=== PATIENT | female | born 1960 | race Caucasian/White ===

== ENCOUNTER → 2016-11-11 | Outpatient (CLI) | payer OTHER ==
[~2016-11-11] MED LIST: ACET325T96 PO; ADVIN25/60 INH; ALBUAER INH; CHOL100010 PO; FERR325T5 PO; NRN/600 PO; TRAM-10 PO; VENL75TA4 PO
--- NOTE | 2016-11-11 14:59 | DIAGNOSTIC IMAGING REPORT ---
CT LUNG SCREENING, LOW DOSE WITH COMPUTER-AIDED DETECTION (CAD) CLINICAL HISTORY: Smoking history. COMPARISON STUDY: Chest CT December 02, 2015. CT DOSE: 72.52 mGycm TECHNIQUE: Low-dose helical CT was acquired without intravenous contrast from lung apices to bases and reconstructed at 2.5 mm every 2 mm. CAD was utilized for this study. A dose lowering technique was utilized adhering to the principles of ALARA. FINDINGS: No enlarged axillary, mediastinal or hilar lymph nodes are present. Size of the heart is normal. There is moderate coronary artery calcification. Thyroid gland is enlarged. Central airways are patent. There is no pneumothorax or pleural effusion. There is no consolidation to suggest pneumonia. There are no suspicious pulmonary nodules. No suspicious osseous lesions are present. The patient is status post left mastectomy. The gallbladder is surgically absent. Upper abdomen is unremarkable on this unenhanced exam. IMPRESSION: 1. No suspicious pulmonary nodules. 2. No acute intrathoracic findings. Lung RADS 1. Negative study. Continue with annual screening with low dose CT in 12 months. CAD FINDINGS: Overall Lung RADS Category: 1 Lung RADS Management Recommendation: Follow-up low dose CT in 12 months. Lung RADS Follow Up Date: November 11, 2017 Electronically signed by: Jeffrey Lemus M.D. 11/11/2016 2:58 PM Dictated Date/Time: 11/11/2016 2:41 PM
== END | disposition home or self-care (01) ==
LOC: C.CTS 13:46
PROVIDERS: ATTEND Nurse Practitioner
DX: Z12.2 Encounter for screening for malignant neoplasm of respiratory organs (principal); F17.210 Nicotine dependence, cigarettes, uncomplicated

== ENCOUNTER 2017-01-29 04:38 | Emergency (ER) | payer OTHER ==
[~2017-01-29] VITALS: Ht 165.1 cm; Wt 73.6 kg
[2017-01-29 04:46] VITALS: TEMP 36.4; Ht 165.1 cm; Wt 73.6 kg
[2017-01-29] MEDS ORDERED: ONDANSETRON INJ 2 MG/ML 2 ML VIAL IV STA (04:59)
[2017-01-29] MEDS ORDERED: MoRPHine SULFATE 4 MG/ML 1 ML CARP\\VIAL IV STA (04:59)
[2017-01-29] MEDS ORDERED: OPTIRAY 320 IV PRN (05:15)
[2017-01-29 05:23] LABS: BASO ABS # 0.05 K/uL (0-0.2); COMPLETE YES; EOS % 3.7 %; HEMATOCRIT 37.9 % (37-47); IG% 0.4 %; LYMPH ABS # 1.88 K/uL (1.2-3.4); MEAN CELL VOLUME 92.9 fL (80-100); MEAN CORPUSCULAR HEMOGLOBIN 31.4 pg (25-34); MEAN CORPUSCULAR HGB CONC 33.8 g/dl (32-36); MEAN PLATELET VOLUME 8.5 fL (7.4-10.4); MONO % 9.1 %; NEUT % 48.8 %; PLATELET COUNT 430 K/uL (130-400); RED BLOOD COUNT 4.08 M/uL (4.2-5.4); WHITE BLOOD COUNT 5.08 K/uL (4.8-10.8)
[2017-01-29 05:39] LABS: ALT/SGPT 20 U/L (12-78); AST/SGOT 13 U/L (15-37); BLOOD UREA NITROGEN 18 mg/dl (7-18); CALCIUM 9.8 mg/dl (8.5-10.1); CARBON DIOXIDE 28 mmol/L (21-32); CHLORIDE 105 mmol/L (98-107); GLUCOSE 92 mg/dl (70-99); POTASSIUM 3.7 mmol/L (3.5-5.1); SODIUM 139 mmol/L (136-145)
[2017-01-29 05:42] LABS: ALKALINE PHOSPHATASE 128 U/L (45-117)
[2017-01-29] MEDS ORDERED: HYDROmorphone INJ 2 MG/ML SYR/VIAL IV STA (05:51)
[2017-01-29] MEDS ORDERED: PANTOprazole SOD 40 MG TAB PO STA (06:08)
[2017-01-29] MEDS ORDERED: LIDOCAINE HCL 2% VISC SOLN 20 ML UDC PO STA (06:10)
[2017-01-29] MEDS ORDERED: ALUMINUM/MAGNESIUM SUSP 30 ML UDC PO STA (06:10)
--- NOTE | 2017-01-29 06:11 | EMERGENCY ROOM VISIT NOTE ---
ED Visit Note First contact with patient: 04:41 I saw this patient in conjunction with Nat Canas PA-C. I agree with her decision making and treatment plan.
--- NOTE | 2017-01-29 06:24 | EMERGENCY ROOM VISIT NOTE ---
History First contact with patient: 04:41 Chief Complaint: ABDOMINAL PAIN Stated Complaint: PAIN IN STOMACH History of Present Illness The patient is a 56 year old female who presents to the Emergency Room with complaints of nausea and epigastric pain for the past couple days that is steadily getting worse is a history of pancreatitis. Pain is 9 out of 10. Nothing makes it better or worse. Patient does not drink alcohol. Patient denies chest pain, dyspnea, fever, chills, back pain, urinary symptoms, vomiting , diarrhea. Status post cholecystectomy. History of breast cancer in the past and currently cancer free. Review of Systems See HPI for pertinent positives & negatives. A total of 10 systems reviewed and were otherwise negative. Past Medical/Surgical History Medical Problems: (1) Ca In Situ Breast (2) Ext Hemorrhoid W/O Compl (3) Int Hemorrhoid W/O Compl (4) Iron Defic Anemia Nos (5) Migraine Unspecified W/O Intract Mgrn W/O Status Migrainosus (6) Osteoarthro Nos-Oth Site (7) Ovarian Cyst Nec/Nos (8) Peptic Ulcer Nos (9) Tobacco Use Disorder Surgical Problems: (1) Cholelith W Cholecys Nec Pancreatitis, asthma Social History Smoking Status: Current Every Day Smoker Smokeless Tobacco Use: No Alcohol Use: none Drug Use: none Marital Status: Housing Status: lives with family Occupation Status: employed Current/Historical Medications Scheduled Albuterol (Proventil Hfa), 2 PUFF INH PRN Cholecalciferol (Vitamin D), 2,000 INTER.UNIT PO DAILY Ferrous Sulfate (Ferrous Sulfate), 325 MG PO DAILY Fluticasone Prop/Salmeterol (Advair Diskus 250/50 60 Dose), 1 PUFF INH BID Gabapentin (Neurontin), 600 MG PO TID Venlafaxine Hcl (Effexor), 75 MG PO DAILY Scheduled PRN Acetaminophen Tab (Tylenol), 650 MG PO Q4H PRN for Pain Tramadol (Ultram), 100 MG PO Q4-6H PRN for Pain Allergies Coded Allergies: Meperidine (Verified Allergy, Severe, ANAPHYLACTIC SHOCK, 04/17/09) Physical Exam Vital Signs Date Time Temp Pulse Resp B/P (MAP) Pulse Ox O2 Delivery O2 Flow Rate FiO2 01/29/17 05:46 66 23 188/117 100 Room Air 01/29/17 05:13 71 01/29/17 05:10 Room Air 01/29/17 05:09 Room Air 01/29/17 04:46 36.4 69 20 151/99 99 Room Air Physical Exam VITALS: Vitals are noted on the nurse's note and reviewed by myself. Vital signs hypertensive GENERAL: Pleasant female, in no acute distress, nondiaphoretic, well-developed well-nourished. SKIN: The skin was without rashes, erythema, edema, or bruising. There is no tenting of the skin. Capillary reflex less than 2 seconds. HEAD: Normocephalic atraumatic. EARS: External auditory canals clear, tympanic membranes pearly mckenzie without erythema or effusion bilaterally. EYES: Pupils equal round and reactive to light and accommodation. Conjunctivae without injection, sclerae without icterus. Extraocular movements intact. NOSE: Patent, turbinates without inflammation or discharge. MOUTH: Mucous membranes moist. Pharynx without erythema or exudate. Uvula midline. Airway patent. Tongue does not deviate. NECK: Supple without nuchal rigidity. No lymphadenopathy. No thyromegaly. Cervical spine is nontender. No JVD. HEART: Regular rate and rhythm LUNGS: Clear to auscultation bilaterally without wheezes, rales or rhonchi. No dullness to percussion. No retractions or accessory muscle use. ABDOMEN: Positive bowel sounds x 4. Normal tympanic percussion. Soft, tender to palpation epigastric region, no CVA tenderness, without masses or organomegaly. Matthews sign negative. No guarding or rebound tenderness. MUSCULOSKELETAL: No muscle atrophy, erythema, or edema noted. NEURO: Patient was alert and oriented to person place and time. Normal sensation to light and sharp touch. No focal neurological deficits. Medical Decision & Procedures Laboratory Results 01/29/17 05:15 Red Blood Count 4.08, Mean Corpuscular Volume 92.9, Mean Corpuscular Hemoglobin 31.4, Mean Corpuscular Hemoglobin Concent 33.8, Mean Platelet Volume 8.5, Neutrophils (%) (Auto) 48.8, Lymphocytes (%) (Auto) 37.0, Monocytes (%) (Auto) 9.1, Eosinophils (%) (Auto) 3.7, Basophils (%) (Auto) 1.0, Neutrophils # (Auto) 2.48, Lymphocytes # (Auto) 1.88, Monocytes # (Auto) 0.46, Eosinophils # (Auto) 0.19, Basophils # (Auto) 0.05 01/29/17 05:15 Test 01/29/17 05:15 01/29/17 05:17 White Blood Count 5.08 K/uL (4.8-10.8) Red Blood Count 4.08 M/uL (4.2-5.4) Hemoglobin 12.8 g/dL (12.0-16.0) Hematocrit 37.9 % (37-47) Mean Corpuscular Volume 92.9 fL (80-100) Mean Corpuscular Hemoglobin 31.4 pg (25-34) Mean Corpuscular Hemoglobin Concent 33.8 g/dl (32-36) Platelet Count 430 K/uL (130-400) Mean Platelet Volume 8.5 fL (7.4-10.4) Neutrophils (%) (Auto) 48.8 % Lymphocytes (%) (Auto) 37.0 % Monocytes (%) (Auto) 9.1 % Eosinophils (%) (Auto) 3.7 % Basophils (%) (Auto) 1.0 % Neutrophils # (Auto) 2.48 K/uL (1.4-6.5) Lymphocytes # (Auto) 1.88 K/uL (1.2-3.4) Monocytes # (Auto) 0.46 K/uL (0.11-0.59) Eosinophils # (Auto) 0.19 K/uL (0-0.5) Basophils # (Auto) 0.05 K/uL (0-0.2) RDW Standard Deviation 45.6 fL (36.4-46.3) RDW Coefficient of Variation 13.5 % (11.5-14.5) Immature Granulocyte % (Auto) 0.4 % Immature Granulocyte # (Auto) 0.02 K/uL (0.00-0.02) Anion Gap 6.0 mmol/L (3-11) Est Creatinine Clear Calc Drug Dose 126.2 ml/min Estimated GFR () 125.4 Estimated GFR (Non- 108.2 BUN/Creatinine Ratio 36.0 (10-20) Calcium Level 9.8 mg/dl (8.5-10.1) Total Bilirubin 0.2 mg/dl (0.2-1) Direct Bilirubin < 0.1 mg/dl (0-0.2) Aspartate Amino Transf (AST/SGOT) 13 U/L (15-37) Alanine Aminotransferase (ALT/SGPT) 20 U/L (12-78) Alkaline Phosphatase 128 U/L (45-117) Total Protein 7.2 gm/dl (6.4-8.2) Albumin 3.9 gm/dl (3.4-5.0) Lipase 129 U/L (73-393) Bedside Troponin I < 0.030 ng/ml (0-0.045) Medications Administered Medications (Trade) Dose Ordered Sig/Denny Route Start Time Stop Time Status Last Admin Dose Admin Morphine Sulfate (MoRPHine SULFATE INJ) 4 mg NOW STAT IV 01/29/17 04:59 01/29/17 05:00 DC 01/29/17 05:12 4 MG Ondansetron HCl (Zofran Inj) 4 mg NOW STAT IV 01/29/17 04:59 01/29/17 05:00 DC 01/29/17 05:12 4 MG Hydromorphone HCl (Dilaudid Inj) 1 mg ONE STAT IV 01/29/17 05:51 01/29/17 05:53 DC 01/29/17 05:58 1 MG ED Course Prior records/ancillary studies reviewed. Triage Nursing notes reviewed. Additional history obtained from family. The patient's history was concerning for abdominal pain. Differential diagnosis: Etiologies such as appendicitis, diverticulitis, PUD, biliary pathology, UTI, pancreatitis, obstruction, mesenteric ischemia, aortic pathology, infections, inflammatory bowel disease, renal colic, as well as others were entertained. Physical examination findings: As above. ER treatment provided: Morphine, Zofran On reassessment the patient felt better. Diagnostics interpreted by me: ECG: Normal sinus, normal intervals, no acute ST-T wave changes. Impression normal sinus rhythm interpreted by myself The labs revealed normal lipase. Negative troponin Stable H&H Imaging studies: CT ABDOMEN & PELVIS With Contrast: Lower thorax demonstrates left-sided mastectomy. Moderate intra-and extra hepatic bile duct dilatation without obstructing lesion identified. Findings are likely related to prior cholecystectomy. Liver spleen pancreas and adrenal glands are unremarkable. Probable cyst within the right kidney. Otherwise, the kidneys, ureters and urinary bladder are unremarkable. Uterus is surgically absent. No adnexal masses. Appendix is not visualized. The bowel is unremarkable. Post surgical changes noted in the lower lumbosacral spine. Radiologist: Gomez Spring MD Chest x-ray with no acute consolidation, pneumothorax or free air per my interpretation Exam and history seem consistent with epigastric pain that could be related to reflux. Patient was started on a PPI. Patient did not have acute abdomen on exam. She is advised to see her GI doctor, Dr. Sharma, for further evaluation and treatment and her family care doctor within the next few days and to monitor her blood pressure. She is advised to take medications as directed.. Patient was neurovascularly and neurologically intact. She is well- appearing. Stable vital signs. Patient is advised to return to the ER immediately for abdominal pain, vomiting, black or blood in the stool, worsening signs or symptoms or as needed. By the evaluation outlined above emergent etiologies such as appendicitis, diverticulitis, PUD, biliary pathology, UTI, pancreatitis, obstruction, mesenteric ischemia, aortic pathology, infections, inflammatory bowel disease, renal colic, as well as others were deemed relatively unlikely. The pt informed about the findings as listed above. All questions were answered and pleased with the treatment. Return instructions were outlined and the patient was discharged in stable condition. Outpatient prescription management: protonix, oxyIR Patient reviewed on the [place] drug monitoring site with no recent narcotics Referral: The patient was referred back to their primary care physician for follow-up in 2 to 3 days for a recheck of the current condition. Case reviewed by attending. Medical Decision as above Impression Primary Impression: Epigastric abdominal pain Departure Information Dispostion Home / Self-Care Condition GOOD Referrals Rebekah Watkins CRNP (PCP) Patient Instructions My [facility] Additional Instructions DO NOT drive, drink alcohol, operate machinery, or perform dangerous activities today. You were given medications in the ER that can affect your ability to safely function or operate a vehicle. Your blood pressure was high today. Follow-up with family care for this. Oxycodone (OxyIR) 5mg: Take 1-2 pills every four hours for breakthrough pain. Avoid alcohol, operating machinery or dangerous equipment, working on ladders or roofs, DRIVING, or situations where being under the influence may be dangerous. It is recommended to use an [id number] stool softener such as Colace, 100mg twice daily while taking this medication to avoid constipation. Protonix 40 m tablet daily for next 2 weeks. Take this on an empty stomach. Try Maalox or Zantac for breakthrough symptoms for reflux. Avoid large meals. Avoid acidic foods. Rest and drink plenty of fluids as tolerated. Continue current medications. Avoid strenuous activities and anything that worsens your pain. Resume normal activities once your symptoms resolve. Return to the ER immediately for worsening or persistent chest pain, abdominal pain, black or blood in your stools, vomiting, fevers, chest pains, difficulty breathing, worsening of your condition, or as needed. Follow up with your primary physician in 2-3 days for a recheck of your current condition.
[2017-01-29] MEDS ORDERED: OXYC1TAB3 PO (06:27)
[2017-01-29] MEDS ORDERED: PANT40TA PO (06:27)
[2017-01-29] MEDS ORDERED: ONDANSETRON HOME PACK 4MG OD TAB PO ONE (06:30)
[2017-01-29] MEDS ORDERED: OXYCODONE IR HOME PACK PO ONE (06:30)
[2017-01-29 06:41] VITALS: BP 157/103; PULSE 71; O2SAT 94
--- NOTE | 2017-01-29 06:41 | DIAGNOSTIC IMAGING REPORT ---
CHEST ONE VIEW PORTABLE CLINICAL HISTORY: Atypical chest pain COMPARISON STUDY: February 2006 FINDINGS: The cardiac and mediastinal contours are normal. There is no evidence of focal pulmonary consolidation. There is no evidence of failure. No pleural effusions are visualized.[ No pneumothorax is visualized. IMPRESSION: No active disease in the chest. Electronically signed by: Marcio Porter M.D. 01/29/2017 6:40 AM Dictated Date/Time: 01/29/2017 6:39 AM
--- NOTE | 2017-01-29 07:47 | DIAGNOSTIC IMAGING REPORT ---
CT ABD/PELVIS IV CONTRAST ONLY CLINICAL HISTORY: Severe abdominal pain. History of pancreatitis. COMPARISON STUDY: February 2006 TECHNIQUE: Following the IV administration of 95 mL of Optiray-320, CT scan of the abdomen and pelvis was performed from the lung bases to the proximal femurs. Images are reviewed in the axial, sagittal, and coronal planes. IV contrast was administered without complication. A dose lowering technique was utilized adhering to the principles of ALARA. CT DOSE: 357.35 mGy.cm FINDINGS: Lower chest: The heart is normal in size and configuration, without pericardial effusion. The lung bases and pleural spaces are clear. The left breast appears surgically absent Liver: There is mild intrahepatic biliary ductal dilatation similar to the preceding study. No focal masses are visualized. Gallbladder: Surgically absent. There is dilatation of the common bile duct, unchanged from the prior study. Spleen: Normal in size and attenuation. Pancreas: Unremarkable. Adrenal glands: Unremarkable. Kidneys: There is a 1 cm right renal hypodensity likely representing a cyst Bowel: There are no transition zones to indicate bowel obstruction. The appendix is surgically absent. There is no acute diverticulitis. Peritoneum: There is no intraperitoneal free air or abdominal ascites. Vasculature: There is mild ectasia of the abdominal aorta which measures 25 mm in diameter. Adenopathy: None. Pelvic viscera: The uterus is surgically absent. Skeletal structures: There are postsurgical changes present within the lumbar spine. IMPRESSION: 1. Surgically absent gallbladder, appendix, and uterus 2. Mild intra and extrahepatic biliary ductal dilatation, similar to the prior 2005 study 3. No evidence of bowel obstruction. No evidence of free air 4. No acute inflammatory changes Electronically signed by: Marcio Porter M.D. 01/29/2017 7:46 AM Dictated Date/Time: 01/29/2017 7:05 AM
[2017-01-30 10:57] LABS: ISTAT CREATININE 0.5 mg/dl (0.6-1.3); ISTAT HEMOGLOBIN 13.3 g/dl (12.0-16.0); ISTAT IONIZED CALCIUM 1.29 mmol/l (1.12-1.32)
== END 2017-01-29 06:42 | disposition home or self-care (01) ==
LOC: C.EDB 04:38 → C.EDA 06:42
DX: R10.13 Epigastric pain (principal); R11.0 Nausea; F17.200 Nicotine dependence, unspecified, uncomplicated; J45.909 Unspecified asthma, uncomplicated; G43.909 Migraine, unspecified, not intractable, without status migrainosus; M19.90 Unspecified osteoarthritis, unspecified site; Z79.51 Long term (current) use of inhaled steroids; Z87.11 Personal history of peptic ulcer disease; Z87.19 Personal history of other diseases of the digestive system; Z90.49 Acquired absence of other specified parts of digestive tract; Z85.3 Personal history of malignant neoplasm of breast

== ENCOUNTER 2017-02-01 12:59 | Emergency (ER) | payer OTHER ==
[~2017-02-01] VITALS: Ht 165.1 cm; Wt 73.6 kg
[~2017-02-01 12:59] MED LIST changes: +OXYC1TAB3 PO; +PANT40TA PO
[2017-02-01 13:08] VITALS: O2SAT 100
[2017-02-01 13:20] VITALS: TEMP 36.6; Ht 165.1 cm; Wt 73.6 kg
[2017-02-01] MEDS ORDERED: ALBUAER INH (13:20)
[2017-02-01] MEDS ORDERED: CHOL100041 PO (13:20)
--- NOTE | 2017-02-01 13:29 | EMERGENCY ROOM VISIT NOTE ---
History Report prepared by Donya: Ying Khoury Under the Supervision of: Dr. Shoaib Gonzalez M.D. First contact with patient: 13:02 Chief Complaint: SYNCOPE Stated Complaint: SYNCOPE History of Present Illness The patient is a 56 year old female who presents to the Emergency Room with complaints of syncopal episode that occurred prior to arrival. She states that she was standing while at work when the episode occurred. Patient states she felt lightheaded prior to "passing out." She states that she has these episodes two to four times a year. Patient denies eating breakfast today, but normally only has cookies or chips for breakfast. Patient claims that she did not hit her head. She denies any headache or new neck pain. She notes that her legs are always numb due to nerve damage. Patient states that she came to the ED 3 days ago due to significant pain in her stomach; however her results were normal. She currently complains of abdominal bloating. She was advised to speak with her PCP and is scheduled for an endoscopy. Patient states that she takes oxycodone for pain. Source of History: patient Onset: Prior to arrival Quality: other (syncope) Timing: other (episode) Associated Symptoms: No headache, No neck pain (new) Note: The patient also complains of abdominal bloating. Review of Systems All systems have been listed, reviewed, and are negative other than those previously mentioned. Please see Additional Medical History Sheet. Past Medical & Surgical Medical Problems: (1) Ca In Situ Breast (2) Ext Hemorrhoid W/O Compl (3) Int Hemorrhoid W/O Compl (4) Iron Defic Anemia Nos (5) Migraine Unspecified W/O Intract Mgrn W/O Status Migrainosus (6) Osteoarthro Nos-Oth Site (7) Ovarian Cyst Nec/Nos (8) Peptic Ulcer Nos (9) Tobacco Use Disorder Surgical Problems: (1) Cholelith W Cholecys Nec Family History No pertinent family history stated. Social History Smoking Status: Current Every Day Smoker Alcohol Use: none Drug Use: none Marital Status: Housing Status: lives with family Occupation Status: employed Current/Historical Medications Scheduled Cholecalciferol (D 1000), 2,000 UNITS PO DAILY Ferrous Sulfate (Ferrous Sulfate), 325 MG PO DAILY Fluticasone Prop/Salmeterol (Advair Diskus 250/50 60 Dose), 1 PUFF INH BID Gabapentin (Neurontin), 600 MG PO TID Scheduled PRN Acetaminophen Tab (Tylenol), 650 MG PO Q4H PRN for Pain Albuterol Sulfate (Proventil Hfa), 2 PUFFS INH Q4H PRN for SOB/Wheezing Allergies Coded Allergies: Meperidine (Verified Allergy, Severe, ANAPHYLACTIC SHOCK, 02/01/17) Physical Exam Vital Signs Date Time Temp Pulse Resp B/P (MAP) Pulse Ox O2 Delivery O2 Flow Rate FiO2 02/01/17 17:15 81 18 123/86 99 02/01/17 15:55 65 18 135/84 100 Room Air 02/01/17 14:14 65 16 127/82 99 Room Air 75 127/87 83 118/89 02/01/17 13:20 36.6 67 20 146/97 100 Room Air 02/01/17 13:09 67 02/01/17 13:08 100 Room Air Physical Exam GENERAL: Patient awake, alert, oriented x 3. Appropriate. Patient follows commands. Patient does not appear toxic. Patient is adequately hydrated and well-nourished. SKIN: No erythema, pallor, cyanosis or rash HEENT: Normal head. No Martinez's signs. no raccoon eyes, no lumps, bumps, or bruises. pupils equal, reactive to light and accommodation. Ears normal. No hemotympanum. Oral cavity and posterior pharynx appear normal. Neck: Without adenopathy, no neck vein distention. LUNGS: Clear to auscultation. No wheezes, no rales, no rhonchi. HEART: No murmurs. No gallops. No rubs CHEST: Left mastectomy. ABDOMEN: No masses, no rebound, no hepatomegaly or splenomegaly. Soft, vague mid epigastric tenderness. EXTREMITIES: No signs of trauma. No pedal or pretibial edema. No calf or thigh tenderness. NEUROLOGIC: Cranial nerves II-XII within normal limits. No gross motor sensory function deficits. Medical Decision & Procedures ER Provider Diagnostic Interpretation: Radiology results as stated below per my review and radiologist interpretation: CHEST 2 VIEWS ROUTINE CLINICAL HISTORY: syncope mental status change COMPARISON STUDY: 01/29/2017 FINDINGS: The bones soft tissues and hemidiaphragms are normal. The cardiomediastinal silhouette is normal. The lungs are clear. The pulmonary vasculature is normal. IMPRESSION: Negative chest. The above report was generated using voice recognition software. It may contain grammatical, syntax or spelling errors. Electronically signed by: Reynold Carmen M.D. 02/01/2017 2:05 PM Dictated Date/Time: 02/01/2017 2:04 PM Laboratory Results 02/01/17 13:30 Red Blood Count 4.12, Mean Corpuscular Volume 92.2, Mean Corpuscular Hemoglobin 30.3, Mean Corpuscular Hemoglobin Concent 32.9, Mean Platelet Volume 8.8, Neutrophils (%) (Auto) 77.3, Lymphocytes (%) (Auto) 14.6, Monocytes (%) (Auto) 5.9, Eosinophils (%) (Auto) 1.6, Basophils (%) (Auto) 0.4, Neutrophils # (Auto) 6.19, Lymphocytes # (Auto) 1.17, Monocytes # (Auto) 0.47, Eosinophils # (Auto) 0.13, Basophils # (Auto) 0.03 02/01/17 13:30 Test 02/01/17 13:30 White Blood Count 8.01 K/uL (4.8-10.8) Red Blood Count 4.12 M/uL (4.2-5.4) Hemoglobin 12.5 g/dL (12.0-16.0) Hematocrit 38.0 % (37-47) Mean Corpuscular Volume 92.2 fL (80-100) Mean Corpuscular Hemoglobin 30.3 pg (25-34) Mean Corpuscular Hemoglobin Concent 32.9 g/dl (32-36) Platelet Count 420 K/uL (130-400) Mean Platelet Volume 8.8 fL (7.4-10.4) Neutrophils (%) (Auto) 77.3 % Lymphocytes (%) (Auto) 14.6 % Monocytes (%) (Auto) 5.9 % Eosinophils (%) (Auto) 1.6 % Basophils (%) (Auto) 0.4 % Neutrophils # (Auto) 6.19 K/uL (1.4-6.5) Lymphocytes # (Auto) 1.17 K/uL (1.2-3.4) Monocytes # (Auto) 0.47 K/uL (0.11-0.59) Eosinophils # (Auto) 0.13 K/uL (0-0.5) Basophils # (Auto) 0.03 K/uL (0-0.2) RDW Standard Deviation 45.1 fL (36.4-46.3) RDW Coefficient of Variation 13.5 % (11.5-14.5) Immature Granulocyte % (Auto) 0.2 % Immature Granulocyte # (Auto) 0.02 K/uL (0.00-0.02) Anion Gap 7.0 mmol/L (3-11) Est Creatinine Clear Calc Drug Dose 108.8 ml/min Estimated GFR () 119.4 Estimated GFR (Non- 103.0 BUN/Creatinine Ratio 25.4 (10-20) Calcium Level 10.0 mg/dl (8.5-10.1) Total Bilirubin 0.3 mg/dl (0.2-1) Aspartate Amino Transf (AST/SGOT) 14 U/L (15-37) Alanine Aminotransferase (ALT/SGPT) 18 U/L (12-78) Alkaline Phosphatase 125 U/L (45-117) Troponin I < 0.015 ng/ml (0-0.045) Total Protein 7.1 gm/dl (6.4-8.2) Albumin 3.8 gm/dl (3.4-5.0) Globulin 3.3 gm/dl (2.5-4.0) Albumin/Globulin Ratio 1.2 (0.9-2) Chemistry Specimen Hemolysis Laboratory results as stated above per my review. Medications Administered Medications (Trade) Dose Ordered Sig/Denny Route Start Time Stop Time Status Last Admin Dose Admin Al Hydrox/Mg Hydrox/Simethicone (Maalox Max Susp) 30 ml NOW STAT PO 02/01/17 15:36 02/01/17 15:37 DC 02/01/17 15:54 30 ML ECG Indication: syncope Rate (beats per minute): 64 Rhythm: sinus rhythm Findings: no acute ischemic change, no ectopy, other (normal axis) ED Course 1302: Past medical records reviewed. The patient was evaluated in room B10. A complete history and physical examination was performed. 1536: I reassessed the patient. She notes that she has begun to experience some epigastric abdominal pain, which she feels may be related to her hiatal hernia. Ordered Maalox Max Susp 30ml PO. 1715: Upon reevaluation, the patient appeared to have improvement of her symptoms. I discussed today's findings with her. She verbalized agreement of the treatment plan. The patient was discharged home. Medical Decision The nurse's notes were reviewed. Medical history sheet reviewed. Differential diagnosis includes: CVA, TIA, vasovagal syncope, orthostatic hypotension, metabolic disorder, arrhythmia, cardiac etiology. Multiple labs, EKG and imaging were obtained. Please see above. The patient has no arrhythmia. Troponin is not elevated. No evidence of acute myocardial injury. The patient is not hypoglycemic. She is not anemic. The patient hardly had anything to eat this morning before the syncopal episode. This may have had something to do with her passing out. The patient states that she has episodes like this about 4 times a year. The patient also has intermittent indigestion and epigastric distress. She is on a acid hyperbaric technologist at home. The patient was given Mylanta here which did seem to help. Blood sugar now is 88. I do not believe she requires admission or further evaluation at this time. She will be encouraged to follow-up with her family physician. Medication Reconcilliation Current Medication List: was personally reviewed by me Blood Pressure Screening Patient's blood pressure: Normal blood pressure Impression Primary Impression: Syncope Additional Impression: Gastritis Scribe Attestation The scribe's documentation has been prepared under my direction and personally reviewed by me in its entirety. I confirm that the note above accurately reflects all work, treatment, procedures, and medical decision making performed by me. Departure Information Dispostion Home / Self-Care Referrals No Doctor, Assigned (PCP) Patient Instructions My [facility] Additional Instructions Eat regularly. Follow-up with your family physician within the next 7 days. Return here sooner if you have any further fainting episodes. Problem Qualifiers
--- NOTE | 2017-02-01 14:06 | DIAGNOSTIC IMAGING REPORT ---
CHEST 2 VIEWS ROUTINE CLINICAL HISTORY: syncope mental status change COMPARISON STUDY: 01/29/2017 FINDINGS: The bones soft tissues and hemidiaphragms are normal. The cardiomediastinal silhouette is normal. The lungs are clear. The pulmonary vasculature is normal. IMPRESSION: Negative chest. The above report was generated using voice recognition software. It may contain grammatical, syntax or spelling errors. Electronically signed by: Reynold Carmen M.D. 02/01/2017 2:05 PM Dictated Date/Time: 02/01/2017 2:04 PM
[2017-02-01 14:12] LABS: BASO % 0.4 %; BASO ABS # 0.03 K/uL (0-0.2); COMPLETE YES; EOS % 1.6 %; IG% 0.2 %; LYMPH % 14.6 %; LYMPH ABS # 1.17 K/uL (1.2-3.4); MEAN CELL VOLUME 92.2 fL (80-100); MEAN CORPUSCULAR HEMOGLOBIN 30.3 pg (25-34); MEAN CORPUSCULAR HGB CONC 32.9 g/dl (32-36); MEAN PLATELET VOLUME 8.8 fL (7.4-10.4); MONO % 5.9 %; NEUT % 77.3 %; PLATELET COUNT 420 K/uL (130-400); RED BLOOD COUNT 4.12 M/uL (4.2-5.4); WHITE BLOOD COUNT 8.01 K/uL (4.8-10.8)
[2017-02-01 14:39] LABS: ALB/GLOB RATIO 1.2 (0.9-2); ALKALINE PHOSPHATASE 125 U/L (45-117); ALT/SGPT 18 U/L (12-78); AST/SGOT 14 U/L (15-37); BLOOD UREA NITROGEN 15 mg/dl (7-18); BUN/CREATININE RATIO 25.4 (10-20); CARBON DIOXIDE 24 mmol/L (21-32); CHLORIDE 106 mmol/L (98-107); CREATININE 0.58 mg/dl (0.60-1.20); GLUCOSE 88 mg/dl (70-99); POTASSIUM 4.9 mmol/L (3.5-5.1); SODIUM 137 mmol/L (136-145)
[2017-02-01] MEDS ORDERED: ALUMINUM/MAGNESIUM/SIMETH (MAALOX MAX) 30 ML UDC PO STA (15:36)
[2017-02-01 17:15] VITALS: BP 123/86; PULSE 81; O2SAT 99
== END 2017-02-01 17:16 | disposition home or self-care (01) ==
LOC: EDBD 12:59 → C.EDB 13:00
DX: R55 Syncope and collapse (principal); K29.70 Gastritis, unspecified, without bleeding; F17.210 Nicotine dependence, cigarettes, uncomplicated; Z79.899 Other long term (current) drug therapy; Z90.49 Acquired absence of other specified parts of digestive tract; M19.90 Unspecified osteoarthritis, unspecified site

== ENCOUNTER 2017-05-18 22:11 | Emergency (ER) | payer OTHER ==
[~2017-05-18] VITALS: Ht 166.4 cm; Wt 72.7 kg
[~2017-05-18 22:11] MED LIST changes: +ACET-1693 PO; -ACET325T96 PO; -CHOL100010 PO; +CHOL100041 PO; -FERR325T5 PO; -NRN/600 PO; -OXYC1TAB3 PO; -PANT40TA PO; -TRAM-10 PO; -VENL75TA4 PO
[2017-05-18 22:17] VITALS: TEMP 37.2; Ht 166.4 cm; Wt 72.7 kg
[2017-05-18] MEDS ORDERED: FERR325T5 PO (22:36)
[2017-05-18] MEDS ORDERED: NRN/600 PO (22:36)
[2017-05-18] MEDS ORDERED: CHOL2000 PO (22:44)
[2017-05-18] MEDS ORDERED: GUAI100S18 PO (22:44)
[2017-05-18] MEDS ORDERED: ACET500T58 PO (22:44)
--- NOTE | 2017-05-18 22:54 | EMERGENCY ROOM VISIT NOTE ---
History Report prepared by Donya: Blas Martinez Under the Supervision of: Dr. Richardson Mcdonough M.D. First contact with patient: 22:30 Chief Complaint: COUGH Stated Complaint: EXTREME COUGH/HEADACHE, JAW HURTS, LT EAR HURTS, History of Present Illness The patient is a 56 year old female who presents to the ED with a cc of a persistent cough beginning two days ago. Positive jaw pain and headache. Negative for chest pain. The patient states that her headache is located in the front of her head and feels like it is throbbing. Per , the patient gets frequent headaches. The patient notes that she has not had any recent long travel and does not have a history of blood clots. Source of History: patient, family Onset: two days ago Position: other (lungs) Timing: other (persistent) Associated Symptoms: + headache, No chest pain Note: The patient also complains of jaw pain. Review of Systems See HPI for pertinent positives and negatives. A total of ten systems were reviewed and were otherwise negative. Past Medical & Surgical Medical Problems: (1) Ca In Situ Breast (2) Ext Hemorrhoid W/O Compl (3) Int Hemorrhoid W/O Compl (4) Iron Defic Anemia Nos (5) Migraine Unspecified W/O Intract Mgrn W/O Status Migrainosus (6) Osteoarthro Nos-Oth Site (7) Ovarian Cyst Nec/Nos (8) Peptic Ulcer Nos (9) Tobacco Use Disorder Surgical Problems: (1) Cholelith W Cholecys Nec Family History No pertinent family history stated. Social History Smoking Status: Current Every Day Smoker Alcohol Use: none Drug Use: none Marital Status: Housing Status: lives with family Occupation Status: employed Current/Historical Medications Scheduled Azithromycin (Zithromax), 250 MG PO DAILY Cholecalciferol (Vitamin D3), 2,000 INTER.UNIT PO DAILY Ferrous Sulfate (Ferrous Sulfate), 325 MG PO DAILY Fluticasone Prop/Salmeterol (Advair Diskus 250/50 60 Dose), 1 PUFF INH BID Gabapentin (Neurontin), 600 MG PO TID Prednisone (Prednisone), 50 MG PO DAILY Scheduled PRN Acetaminophen (Acetaminophen), 500 MG PO UD PRN for Pain or Fever Albuterol Sulfate (Proventil Hfa), 2 PUFFS INH Q4H PRN for SOB/Wheezing Guaifenesin (Cough Syrup), 1 DOSE PO UD PRN for Cough Allergies Coded Allergies: Meperidine (Verified Allergy, Severe, ANAPHYLACTIC SHOCK, 02/01/17) Physical Exam Vital Signs Date Time Temp Pulse Resp B/P (MAP) Pulse Ox O2 Delivery O2 Flow Rate FiO2 05/19/17 00:01 97 18 140/91 92 Room Air 05/18/17 23:44 94 05/18/17 23:18 96 Room Air 05/18/17 22:17 37.2 91 18 121/80 96 Room Air Physical Exam GENERAL: Awake, alert, well-appearing, NAD, smells of smoke HENT: Normocephalic, atraumatic, left TM clear, false teeth, no evidence of odontogenic infection, posterior oropharynx clear, no tonsillar or uvular deviation or swelling EYES: Normal conjunctiva. Sclera non-icteric. NECK: Supple. No nuchal rigidity. FROM. RESPIRATORY: CTAB, no rhonchi, wheezing, crackles, trace expiratory wheezing CARDIAC: RRR, no MRG ABDOMEN: Soft, NTND, BS+ MSK: No chest wall TTP, no LE edema NEURO: GCS 15, CN 2-12 intact, moves all 4s on command SKIN: No rash or jaundice noted. Medical Decision & Procedures ER Provider Diagnostic Interpretation: Radiology results as stated below per my review and interpretation: CHEST X-RAY: Trachea is midline. Costophrenic angles well demarcated. No evidence of pleural effusion or pneumothorax. Gaseous bubble over left hemidiaphragm. Bony elements appear intact. Laboratory Results 05/18/17 22:50 Red Blood Count 3.75, Mean Corpuscular Volume 91.5, Mean Corpuscular Hemoglobin 30.7, Mean Corpuscular Hemoglobin Concent 33.5, Mean Platelet Volume 8.6, Neutrophils (%) (Auto) 69.5, Lymphocytes (%) (Auto) 16.0, Monocytes (%) (Auto) 14.2, Eosinophils (%) (Auto) 0.0, Basophils (%) (Auto) 0.0, Neutrophils # (Auto ) 2.34, Lymphocytes # (Auto) 0.54, Monocytes # (Auto) 0.48, Eosinophils # (Auto ) 0.00, Basophils # (Auto) 0.00 05/18/17 22:50 Test 3/8/18 22:50 05/19/17 00:11 05/19/17 00:22 White Blood Count 3.37 K/uL (4.8-10.8) Red Blood Count 3.75 M/uL (4.2-5.4) Hemoglobin 11.5 g/dL (12.0-16.0) Hematocrit 34.3 % (37-47) Mean Corpuscular Volume 91.5 fL (80-100) Mean Corpuscular Hemoglobin 30.7 pg (25-34) Mean Corpuscular Hemoglobin Concent 33.5 g/dl (32-36) Platelet Count 296 K/uL (130-400) Mean Platelet Volume 8.6 fL (7.4-10.4) Neutrophils (%) (Auto) 69.5 % Lymphocytes (%) (Auto) 16.0 % Monocytes (%) (Auto) 14.2 % Eosinophils (%) (Auto) 0.0 % Basophils (%) (Auto) 0.0 % Neutrophils # (Auto) 2.34 K/uL (1.4-6.5) Lymphocytes # (Auto) 0.54 K/uL (1.2-3.4) Monocytes # (Auto) 0.48 K/uL (0.11-0.59) Eosinophils # (Auto) 0.00 K/uL (0-0.5) Basophils # (Auto) 0.00 K/uL (0-0.2) RDW Standard Deviation 50.5 fL (36.4-46.3) RDW Coefficient of Variation 15.0 % (11.5-14.5) Immature Granulocyte % (Auto) 0.3 % Immature Granulocyte # (Auto) 0.01 K/uL (0.00-0.02) Anion Gap 7.0 mmol/L (3-11) Est Creatinine Clear Calc Drug Dose 126.9 ml/min Estimated GFR () 125.4 Estimated GFR (Non- 108.2 BUN/Creatinine Ratio 18.4 (10-20) Calcium Level 9.6 mg/dl (8.5-10.1) Magnesium Level 2.2 mg/dl (1.8-2.4) Total Bilirubin 0.2 mg/dl (0.2-1) Direct Bilirubin < 0.1 mg/dl (0-0.2) Aspartate Amino Transf (AST/SGOT) 30 U/L (15-37) Alanine Aminotransferase (ALT/SGPT) 29 U/L (12-78) Alkaline Phosphatase 114 U/L (45-117) Total Protein 6.7 gm/dl (6.4-8.2) Albumin 3.6 gm/dl (3.4-5.0) Influenza Type A Antigen Neg for Influ A (NEG) Influenza Type B Antigen Neg for Influ B (NEG) Urine Color YELLOW Urine Appearance CLEAR (CLEAR) Urine pH 5.0 (4.5-7.5) Urine Specific [place] 1.007 (1.000-1.030) Urine Protein NEG (NEG) Urine Glucose (UA) NEG (NEG) Urine Ketones NEG (NEG) Urine Occult Blood TRACE (NEG) Urine Nitrite NEG (NEG) Urine Bilirubin NEG (NEG) Urine Urobilinogen NEG (NEG) Urine Leukocyte Esterase NEG (NEG) Urine WBC (Auto) 0 /hpf (0-5) Urine RBC (Auto) 0-4 /hpf (0-4) Urine Hyaline Casts (Auto) 0 /lpf (0-5) Urine Epithelial Cells (Auto) 5-10 /lpf (0-5) Urine Bacteria (Auto) NEG (NEG) Laboratory results reviewed by me Medications Administered Medications (Trade) Dose Ordered Sig/Denny Route Start Time Stop Time Status Last Admin Dose Admin Albuterol/ Ipratropium (Duoneb) 3 ml ONE STAT INH 05/18/17 22:56 05/18/17 23:00 DC 05/18/17 23:23 3 ML Azithromycin (Zithromax Tab) 500 mg NOW ONCE PO 05/18/17 23:00 05/18/17 23:01 DC 05/18/17 23:23 500 MG Methylprednisolone Sodium Succinate (Solu-Medrol IV) 125 mg NOW STAT IV 05/18/17 22:56 05/18/17 23:00 DC 05/18/17 23:19 125 MG Diphenhydramine HCl (Benadryl Inj) 25 mg NOW STAT IV 05/18/17 22:56 05/18/17 23:00 DC 05/18/17 23:20 25 MG Metoclopramide HCl (Reglan Inj) 10 mg NOW STAT IV. 05/18/17 22:56 05/18/17 23:00 DC 05/18/17 23:21 10 MG Sodium Chloride 1,000 ml @ 999 mls/hr Q1H1M STAT IV 05/18/17 22:56 05/18/17 23:56 DC 05/18/17 23:19 999 MLS/HR Benzonatate (Tessalon Perles Cap) 100 mg NOW ONCE PO 05/19/17 00:00 05/19/17 00:01 DC 05/19/17 00:00 100 MG Menthol (Nice Shanika) 1 shanika NOW STAT SHANIKA 05/18/17 23:55 05/18/17 23:56 DC 05/19/17 00:00 1 SHANIKA Potassium Chloride (Klor-Con Tab) 40 meq NOW STAT PO 05/19/17 00:00 05/19/17 00:01 DC 05/19/17 00:14 40 MEQ Albuterol (Ventolin Hfa Inhaler) 2 puffs NOW ONCE INH 05/19/17 01:15 05/19/17 01:20 DC 05/19/17 01:29 2 PUFFS ECG Per My Interpretation Indication: other (jaw pain) Rate (beats per minute): 91 Rhythm: normal sinus Findings: other (Normal intervals, normal axis, no other STS changes or TWI) ED Course 2248: The patient was evaluated in room C7. A complete history and physical exam was performed. 2341: I reevaluated and updated the patient. Her family is concerned about sending her back to [facility]. A family preservation caseworker will talk to them. 0102: I reevaluated the patient. Discussed results and discharge instructions: She verbalized understanding and agreement. The patient is ready for discharge. Medical Decision The patient is a 56 year old female who presents to the ED with a cc of a persistent cough beginning two days ago. Positive jaw pain and headache. Negative for chest pain. Differential diagnosis: Etiologies such as infections, reactive airway disease, pneumonia, pneumothorax , COPD, CHF, cardiac ischemia, pulmonary embolism, musculoskeletal, gastrointestinal, as well as others were entertained. Patient was seen and evaluated the bedside. Patient had complaints of persistent cough beginning 2 days ago. Patient is a positive smoker. Patient did complain of some mild jaw pain and headache. Patient states that the jaw pain was not related to any chest pain. I believe this is likely to be ACS. Patient also did state that it was intermittently productive with regard to her cough. Patient has not smoked in 3 days. Patient denies any lower extremity swelling, prior history of DVT or PE. Patient did have blood work completed. Patient did have mild leukopenia. Patient did have mild hypokalemia. Patient' s mag was normal. Patient was given potassium. Patient's chest x-ray was fairly clear did show some hyperinflation consistent with her smoking history. No evidence of pneumothorax or consolidation. Patient did have noted gaseous bubble in the left hemidiaphragm however the patient did not complain of any nausea or vomiting was able to tolerate p.o. at the bedside. Less likely obstructed. Patient was given medications for possible COPD type exacerbation. This may be more of a bronchitis with the patient did have some end expiratory wheezes. Patient was given steroids, azithromycin. Patient was also given medications for her headache. Patient has no signs of meningismus and has a nonfocal neurologic exam. I do not believe that she requires a lumbar puncture or imaging at this time. Patient's symptoms are more likely infectious. Patient did have negative flu. I did discuss all the findings with the patient. I did give the patient an inhaler with a spacer. Patient was told to follow-up with her PCP and to consider smoking cessation. Patient was given strict follow-up, discharge, and return precautions. All questions were answered. Patient was deemed suitable for outpatient follow-up at this time. Patient agreed with the plan of care and was safely discharged home. Head Trauma GCS Score: 15 Medication Reconcilliation Current Medication List: was personally reviewed by me Blood Pressure Screening Patient's blood pressure: Elevated blood pressure Blood pressure disposition: Referred to PCP Impression Primary Impression: Acute bronchitis Additional Impressions: Anemia Hypokalemia Encounter for smoking cessation counseling Scribe Attestation The scribe's documentation has been prepared under my direction and personally reviewed by me in its entirety. I confirm that the note above accurately reflects all work, treatment, procedures, and medical decision making performed by me. Departure Information Dispostion Home / Self-Care Prescriptions Prednisone (PREDNISONE) 50 Mg Tab 50 MG PO DAILY for 4 Days, #4 TAB Prov: Richardson Mcdonough M.D. 05/19/17 Azithromycin (Zithromax) 250 Mg Tab 250 MG PO DAILY, #4 TAB Prov: Richardson Mcdonough M.D. 05/19/17 Referrals No Doctor, Assigned (PCP) Patient Instructions Bronchitis Acute, My [facility] Additional Instructions Please return to the emergency department if you have worsening or recurrent symptoms not amenable to at-home treatment. Please call for a follow-up appointment with her primary care physician. Please take your medications as prescribed. If you have other concerns and/or complaints please feel free to also call your primary care physician's office or return the ED for further evaluation, management, and treatment. You were found to have an elevated blood pressure today (>120 sytolic or >90 diastolic). Per medicare guidelines, you need to follow up with this blood pressure screening with your Primary Care Physician (PCP). For a new PCP call [phone]. You received narcotic or benzodiazepene medication while in the emergency room today. This is an addictive medication that may cause drowziness as well as constipation. Do not drive, operate heavy machinery, or drink alcohol under the influence of this medication. You may take 400 mg Ibuprofen every 6 hours as needed for pain with food for no more than 2 consecutive days. You may take tylenol 650 mg every 6 hours as needed for pain. You may take motrin and tylenol separately or at the same time. Please take your albuterol 2 puffs every 4 hours 1 day, 2 puffs every 6 hours 1 day, 1 puff every 4 hours 1 day, and 1 puff every 6 hours 1 day. While taking the steroids please take with food and preferably in the morning as it can make you hyperactive and cause an upset stomach. Please consider smoking cessation. Take your medications as prescribed. If taking an antibiotic consider taking a probiotic and/or eating yogurt, but at the least, please take with food as it can cause upset stomach. You have been examined and treated today on an emergency basis only. This is not a substitute for, or an effort to provide, complete comprehensive medical care. It is impossible to recognize and treat all injuries or illnesses in a single emergency department visit. It is therefore important that you follow up closely with [facility], your PCP, and/or your specialist(s). Call as soon as possible for an appointment. Thank you for your time and consideration. I look forward to speaking with you again soon. Please don't hesitate to call us if you have any questions. Problem Qualifiers Primary Impression: Acute bronchitis Bronchitis organism: unspecified organism Qualified Codes: J20.9 - Acute bronchitis, unspecified Additional Impressions: Anemia Anemia type: unspecified type Qualified Codes: D64.9 - Anemia, unspecified
[2017-05-18] MEDS ORDERED: DiphenhydrAMINE HCL 50 MG/ML VIAL IV STA (22:56)
[2017-05-18] MEDS ORDERED: SODIUM CHLORIDE 0.9% 1000ML 1,000 ML IV STA (22:56)
[2017-05-18] MEDS ORDERED: ALBUT/IPRATROP 3MG/0.5MG NEB 3 ML VIAL INH STA (22:56)
[2017-05-18] MEDS ORDERED: METHYLPREDNISOLONE 125 MG VIAL IV STA (22:56)
[2017-05-18] MEDS ORDERED: METOCLOPRAMIDE HCL INJ 5 MG/ML 2 ML VIAL IV. STA (22:56)
[2017-05-18] MEDS ORDERED: AZITHROMYCIN 250 MG TAB PO ONE (23:00)
[2017-05-18 23:08] LABS: HEMATOCRIT 34.3 % (37-47); HEMOGLOBIN 11.5 g/dL (12.0-16.0); IG# 0.01 K/uL (0.00-0.02); LYMPH ABS # 0.54 K/uL (1.2-3.4); MEAN CELL VOLUME 91.5 fL (80-100); MEAN CORPUSCULAR HEMOGLOBIN 30.7 pg (25-34); MEAN CORPUSCULAR HGB CONC 33.5 g/dl (32-36); MEAN PLATELET VOLUME 8.6 fL (7.4-10.4); MONO % 14.2 %; MONO ABS # 0.48 K/uL (0.11-0.59); NEUT % 69.5 %; NEUT ABS # 2.34 K/uL (1.4-6.5); PLATELET COUNT 296 K/uL (130-400); RED CELL DISTRIBUTION WIDTH SD 50.5 fL (36.4-46.3); WHITE BLOOD COUNT 3.37 K/uL (4.8-10.8)
[2017-05-18 23:18] VITALS: O2SAT 96
[2017-05-18 23:28] LABS: ALBUMIN 3.6 gm/dl (3.4-5.0); ALT/SGPT 29 U/L (12-78); BLOOD UREA NITROGEN 9 mg/dl (7-18); CALCIUM 9.6 mg/dl (8.5-10.1); CARBON DIOXIDE 25 mmol/L (21-32); GLUCOSE 118 mg/dl (70-99); SODIUM 138 mmol/L (136-145)
[2017-05-18 23:31] LABS: ALKALINE PHOSPHATASE 114 U/L (45-117); AST/SGOT 30 U/L (15-37); TOTAL PROTEIN 6.7 gm/dl (6.4-8.2)
[2017-05-18] MEDS ORDERED: COUGH DROP (SUGAR FREE) LOZ 24 LOZ/1 BOX LOZ STA (23:55)
[2017-05-19] MEDS ORDERED: POTASSIUM CHLORIDE 20 MEQ TABCR PO STA
[2017-05-19] MEDS ORDERED: BENZONATATE 100MG CAP PO ONE
[2017-05-19 00:45] LABS: INFLUENZA B ANTIGEN Neg for Influ B (NEG)
[2017-05-19] MEDS ORDERED: ALBUTEROL HFA 8 GM INHALER INH ONE ×2 (01:06→01:15)
[2017-05-19] MEDS ORDERED: AZIT250T PO (01:23)
[2017-05-19] MEDS ORDERED: PRED50TA PO (01:23)
[2017-05-19 01:34] VITALS: BP 118/86; PULSE 109; O2SAT 97
--- NOTE | 2017-05-19 06:34 | DIAGNOSTIC IMAGING REPORT ---
CHEST ONE VIEW PORTABLE CLINICAL HISTORY: EVALUATE WEAKNESS dyspnea COMPARISON STUDY: 02/01/2017 FINDINGS: The bones soft tissues and hemidiaphragms are normal. The cardiomediastinal silhouette is normal. The lungs are clear. The pulmonary vasculature is normal. IMPRESSION: Negative chest. The above report was generated using voice recognition software. It may contain grammatical, syntax or spelling errors. Electronically signed by: Reyonld Carmen M.D. 05/19/2017 6:33 AM Dictated Date/Time: 05/19/2017 6:32 AM
== END 2017-05-19 01:34 | disposition home or self-care (01) ==
LOC: C.EDB 22:13 → C.EDC 05-19 01:34
DX: J20.9 Acute bronchitis, unspecified (principal); D64.9 Anemia, unspecified; E87.6 Hypokalemia; Z71.6 Tobacco abuse counseling; R68.84 Jaw pain; R51 Headache; M19.90 Unspecified osteoarthritis, unspecified site; Z79.899 Other long term (current) drug therapy; Z85.3 Personal history of malignant neoplasm of breast; Z87.11 Personal history of peptic ulcer disease; Z88.6 Allergy status to analgesic agent; F17.200 Nicotine dependence, unspecified, uncomplicated